=== PATIENT | female | born 1970 | race American Indian/Alaskan Native ===

== ENCOUNTER 2019-08-23 14:15 | Emergency (ER) | payer SELFPAY ==
[2019-08-23 15:29] VITALS: BP 134/82
== END 2019-08-23 15:53 | disposition left against medical advice (07) ==
LOC: ED 14:15
DX: R21 Rash and other nonspecific skin eruption (principal); Z53.21 Procedure and treatment not carried out due to patient leaving prior to being seen by health care provider

== ENCOUNTER 2019-12-25 22:44 | Emergency (ER) | payer OTHER ==
[2019-12-26 00:06] LABS: Bilirubin,Urine NEG (Negative); Blood,Urine MOD (Negative); Color,Urine Yellow (Yellow); Mucus,Urine FEW /HPF; Protein,Urine <15 mg/dL mg/dL (Negative); Urobilinogen,Urine < 2.0 mg/dL (<2.0)
[2019-12-26 00:17] LABS: Alanine Aminotransferase 13 units/L (7-56); Albumin 3.4 g/dL (3.9-5); BUN/Creatinine Ratio 17; Blood Urea Nitrogen 19 mg/dL (7-17); Calcium 8.5 mg/dL (8.4-10.2); Hemolysis Index 4
[2019-12-26 00:26] LABS: Basophils % (Auto) 0.5 % (0.0-1.8); Eosinophils # (Auto) 0.1 K/mm3 (0.0-0.4); Eosinophils % (Auto) 2.1 % (0.0-4.3); Hematocrit 42.4 % (30.3-42.9); Hemoglobin 14.2 gm/dl (10.1-14.3); Lymphocytes # (Auto) 2.4 K/mm3 (1.2-5.4); Lymphocytes % (Auto) 37.5 % (13.4-35.0); Mean Corpuscular HGB Conc 33 % (30-34); Mean Corpuscular Volume 90 fl (79-97); Monocytes # (Auto) 0.4 K/mm3 (0.0-0.8); Platelet Count 216 K/mm3 (140-440); Red Blood Count 4.71 M/mm3 (3.65-5.03); Red Cell Distribution Width 14.6 % (13.2-15.2)
[2019-12-26] MEDS ORDERED: SODIUM CHLORIDE 0.9% 1000 ML 1,000 ML IV ONE (00:50)
[2019-12-26] MEDS ORDERED: ONDANSETRON 4 MG/2 ML INJ IV ONE (00:50)
[2019-12-26] MEDS ORDERED: KETOROLAC 30 MG/1 ML INJ IV ONE (00:50)
--- NOTE | 2019-12-26 01:47 | XRay Report ---
SUPINE ABDOMEN 2 IMAGES INDICATION: Abdominal pain for 2 days. COMPARISON: No relevant prior imaging study available. FINDINGS: No small bowel obstruction is seen. Constipation is noted. No free air is identified. Punctate phlebo liths are noted in the pelvis. IMPRESSION: 1. Constipation Signer Name: Harsh Mcmullen MD Signed: 12/26/2019 1:42 AM Workstation Name: [email or web address]
--- NOTE | 2019-12-26 01:58 | Emergency Department Report ---
ED Abdominal Pain HPI - General Chief Complaint: Abdominal Pain Stated Complaint: ABD PAIN Time Seen by Provider: 12/26/19 00:47 Source: patient Mode of arrival: Ambulatory Limitations: No Limitations - History of Present Illness Initial Comments: pt is a 49 y/o aaf with hx of htn, C Section, and uterine fibroids who presents for abdominal pain and cramping radiating to the left lower quadrant. Patient rates symptoms at 5/10 over the past 2 days. States bowel movement x1 after laxative firm moderate amount 2 days ago. Patient denies fevers or chills. Presents tonight because abdomen is sore, Complaint: abdominal pain Onset/Timin -: days(s) Location: LLQ Radiation: LLQ Severity: moderate Severity scale (0 -10): 8 Quality: cramping, aching Consistency: constant Improves With: nothing Worsens With: eating Associated Symptoms: nausea, constipation. denies: dysuria, melena - Related Data Previous Rx's Medication Instructions Recorded Last Taken Type bisacodyL [Dulcolax] 10 mg PO DAILY PRN #5 tab 12/26/19 Unknown Rx polyethylene glycoL 3350 [Miralax 17 gm PO BID PRN #14 packet 12/26/19 Unknown Rx 3350] Allergies Allergy/AdvReac Type Severity Reaction Status Date / Time latex Allergy Hives Verified 12/26/19 00:04 ED Review of Systems ROS: Stated complaint: ABD PAIN Other details as noted in HPI Constitutional: denies: chills, fever Eyes: denies: eye pain, eye discharge, vision change ENT: denies: ear pain, throat pain Respiratory: denies: cough, shortness of breath, wheezing Cardiovascular: denies: chest pain, palpitations Endocrine: no symptoms reported Gastrointestinal: abdominal pain, nausea, constipation. denies: vomiting, diarrhea, melena Genitourinary: denies: urgency, dysuria, discharge Musculoskeletal: denies: back pain, joint swelling, arthralgia Skin: denies: rash, lesions Neurological: denies: headache, weakness, paresthesias Psychiatric: denies: anxiety, depression Hematological/Lymphatic: denies: easy bleeding, easy bruising ED Past Medical Hx - Past Medical History Previous Medical History?: Yes Hx Hypertension: Yes - Surgical History Past Surgical History?: Yes Additional Surgical History: C section. surgery for fibroids - Social History Smoking Status: Never Smoker Substance Use Type: None - Medications Home Medications: Home Medications Medication Instructions Recorded Confirmed Last Taken Type bisacodyL [Dulcolax] 10 mg PO DAILY PRN #5 tab 12/26/19 Unknown Rx polyethylene glycoL 3350 [Miralax 17 gm PO BID PRN #14 packet 12/26/19 Unknown Rx 3350] ED Physical Exam - General Limitations: No Limitations General appearance: alert, in no apparent distress - Head Head exam: Present: atraumatic, normocephalic - Eye Eye exam: Present: normal appearance, PERRL, EOMI Pupils: Present: normal accommodation - ENT ENT exam: Present: mucous membranes moist - Neck Neck exam: Present: normal inspection, full ROM. Absent: tenderness - Respiratory Respiratory exam: Present: normal lung sounds bilaterally. Absent: respiratory distress - Cardiovascular Cardiovascular Exam: Present: regular rate, normal rhythm, normal heart sounds. Absent: systolic murmur, diastolic murmur, rubs, gallop - GI/Abdominal GI/Abdominal exam: Present: soft, tenderness (periumbilical ), normal bowel sounds. Absent: distended, guarding, rebound, rigid, bruit, hernia - Rectal Rectal exam: Present: deferred - Extremities Exam Extremities exam: Present: normal inspection, full ROM, normal capillary refill. Absent: tenderness - Back Exam Back exam: Present: normal inspection, full ROM. Absent: tenderness, CVA tenderness (R), CVA tenderness (L), vertebral tenderness, rash noted - Neurological Exam Neurological exam: Present: alert, oriented X3, CN II-XII intact, normal gait - Psychiatric Psychiatric exam: Present: normal affect - Skin Skin exam: Present: warm, dry, intact, normal color. Absent: rash ED Medical Decision Making - Lab Data Result diagrams: 12/25/19 23:37 12/25/19 23:37 Labs 12/25/19 12/25/19 12/25/19 23:37 23:37 23:37 WBC 6.3 RBC 4.71 Hgb 14.2 Hct 42.4 MCV 90 MCH 30 MCHC 33 RDW 14.6 Plt Count 216 Lymph % (Auto) 37.5 H [place] % (Auto) 6.0 Eos % (Auto) 2.1 Baso % (Auto) 0.5 Lymph # 2.4 [place] # 0.4 Eos # 0.1 Baso # 0.0 Seg Neutrophils % 53.9 Seg Neutrophils # 3.4 Sodium 142 Potassium 3.9 Chloride 107.5 H Carbon Dioxide 24 Anion Gap 14 BUN 19 H Creatinine 1.1 Estimated GFR > 60 BUN/Creatinine Ratio 17 Glucose 84 Calcium 8.5 Total Bilirubin < 0.20 AST 14 ALT 13 Alkaline Phosphatase 72 Total Protein 6.1 L Albumin 3.4 L Albumin/Globulin Ratio 1.3 Lipase 68 H HCG, Qual Negative Urine Color Urine Turbidity Urine pH Ur Specific [place] Urine Protein Urine Glucose (UA) Urine Ketones Urine Blood Urine Nitrite Urine Bilirubin Urine Urobilinogen Ur Leukocyte Esterase Urine WBC (Auto) Urine RBC (Auto) U Epithel Cells (Auto) Urine Mucus 12/25/19 Unknown WBC RBC Hgb Hct MCV MCH MCHC RDW Plt Count Lymph % (Auto) [place] % (Auto) Eos % (Auto) Baso % (Auto) Lymph # [place] # Eos # Baso # Seg Neutrophils % Seg Neutrophils # Sodium Potassium Chloride Carbon Dioxide Anion Gap BUN Creatinine Estimated GFR BUN/Creatinine Ratio Glucose Calcium Total Bilirubin AST ALT Alkaline Phosphatase Total Protein Albumin Albumin/Globulin Ratio Lipase HCG, Qual Urine Color Yellow Urine Turbidity Slightly-cloudy Urine pH 6.0 Ur Specific [place] 1.021 Urine Protein <15 mg/dl Urine Glucose (UA) Neg Urine Ketones Neg Urine Blood Mod Urine Nitrite Neg Urine Bilirubin Neg Urine Urobilinogen < 2.0 Ur Leukocyte Esterase Neg Urine WBC (Auto) 3.0 Urine RBC (Auto) 43.0 U Epithel Cells (Auto) 22.0 H Urine Mucus Few - Radiology Data Radiology results: report reviewed, image reviewed Findings Reporting MD: Harsh Mcmullen Dictation Time: December 26, 2019 00:42 Quenching Car Operator: Not available Voice Intercept Technician Date: SUPINE ABDOMEN 2 IMAGES INDICATION: Abdominal pain for 2 days. COMPARISON: No relevant prior imaging study available. FINDINGS: No small bowel obstruction is seen. Constipation is noted. No free air is identified. Punctate phleboliths are noted in the pelvis. IMPRESSION: 1. Constipation Signer Name: Harsh Mcmullen MD Signed: 12/26/2019 12:42 AM Workstation Name: [id number] - Medical Decision Making KUB demonstrates constipation. CBC CMP normal. Patient treated with normal saline x1 L IV and Zofran with Toradol , advises abdominal pain is improved plan DC to home with prescriptions. Patient verbalizes agreement and understanding of discharge plan will hydrate as directed. Critical care attestation.: If time is entered above; I have spent that time in minutes in the direct care of this critically ill patient, excluding procedure time. ED Disposition Clinical Impression: Constipation Qualifiers: Constipation type: unspecified constipation type Qualified Code(s): K59.00 - Constipation, unspecified Disposition: DC- TO HOME OR SELFCARE Is pt being admited?: No Does the pt Need Aspirin: No Condition: Stable Instructions: Constipation (ED) Prescriptions: bisacodyL [Dulcolax] 10 mg PO DAILY PRN #5 tab PRN Reason: Constipation polyethylene glycoL 3350 [Miralax 3350] 17 gm PO BID PRN #14 packet PRN Reason: Constipation Referrals: AMIE GALLOWAY MD [Staff Physician] - 3-5 Days Forms: Work/School Release Form(ED) Time of Disposition: 02:04
[2019-12-26 03:39] VITALS: BP 132/88
== END 2019-12-26 03:00 | disposition home or self-care (01) ==
LOC: ED 22:44
DX: K59.00 Constipation, unspecified (principal); R11.0 Nausea; I10 Essential (primary) hypertension; Z98.890 Other specified postprocedural states; Z79.899 Other long term (current) drug therapy; Z91.040 Latex allergy status
CPT/HCPCS: 36415; 74018; 80053; 81001; 83690; 84703; 85025; 96374; 96375; 99283; J1885; J2405; J7030